=== PATIENT | female | born 1980 | race Caucasian/White ===

== ENCOUNTER 2023-12-10 22:22 | Emergency (ER) | payer OTHER, SELFPAY ==
--- NOTE | ~2023-12-10 | XR_ITS ---
XR chest 2V Ordering provider: Mitul Cuevas MD History: 43 years Female with . Chest pain and shortness of breath . Comparison: None. FINDINGS: MEDIASTINUM: The cardiac silhouette is not enlarged. LUNGS: No infiltrates, effusions or pneumothorax. OTHER: No free air under the diaphragm. IMPRESSION: No acute cardiopulmonary pathology. Reviewed, dictated and finalized at location A.
[2023-12-10 22:28] VITALS: BP 148/80; PULSE 81; RESP 16; TEMP 36.4; O2SAT 100
--- NOTE | 2023-12-10 22:28 | ECG_ITS ---
Test Date: 2023-12-10 22:34:40 Measurements Intervals [place] Rate: 70 P: 52 [place]: 171 QRS: 9 QRSD: 101 T: 33 QT: 363 QTc: 392 Interpretive Statements SINUS RHYTHM POOR R-WAVE PROGRESSION BORDERLINE ECG No previous ECG available for comparison Electronically Signed On 12-11-2023 14:55:03 CDT by Fredy Fernandez M.D.
[2023-12-10 22:48] LABS: Basophils Percent Auto 0.2 % (0.2-1.2); Eosinophils Absolute Auto 0.1 K/mm3 (0-0.3); Eosinophils Percent Auto 0.7 % (0-4.4); Hematocrit 38.5 % (37.0-47.0); Hemoglobin 12.6 g/dL (12.0-15.0); Immature Granulocyte Absolute 0.04 K/mm3 (0.00-0.031); Immature Granulocyte Percent A 0.3 % (0-0.5); Lymphocytes Absolute Auto 3.24 K/mm3 (0.9-3.2); Lymphocytes Percent Auto 27.3 % (18.3-44.2); Mean Corpuscular HGB Conc 32.7 g/dl (32-36); Mean Corpuscular Hemoglobin 28.7 pg (26-34); Mean Corpuscular Volume 87.7 fl (80-100); Mean Platelet Volume 10.1 fl (7.4-10.4); Monocytes Absolute Auto 0.9 K/mm3 (0.1-0.6); Monocytes Percent Auto 7.4 % (2.6-8.5); Neutrophils Absolute Auto 7.6 K/mm3 (1.3-6.7); Neutrophils Percent Auto 64.1 % (45.5-73.1); Platelet Count Result 255 k/mm3 (150-375); Red Blood Count 4.39 M/mm3 (4.2-5.4); Red Cell Distribution Width 13.9 % (11.5-14.5); White Blood Count 11.9 K/mm3 (4.5-10.0)
[2023-12-10 22:58] LABS: Alanine Aminotransferase 30 U/L (6-35); Albumin Level 4.4 g/dL (3.5-5.1); Alkaline Phosphatase 80 U/L (38-126); Anion Gap 13 mmol/L (4-12); Aspartate Amino Transferase 24 U/L (14-36); Bilirubin,Total 1.2 mg/dL (0.2-1.3); Blood Urea Nitrogen 13 mg/dL (7-17); Calcium 9.1 mg/dL (8.4-10.2); Carbon Dioxide 21 mmol/L (22-30); Chloride 102 mmol/L (98-107); Estimated CRCL calculation 123 ml/min; Estimated Glomerular Filt Rate > 60; Glucose 174 mg/dL (65-110); Potassium 3.9 mmol/L (3.4-5.0); Sodium 136 mmol/L (137-145)
[2023-12-10 23:10] LABS: Troponin I < 0.012 ng/mL (0.000-0.034)
[2023-12-10 23:35] VITALS: PULSE 90; O2SAT 98
--- NOTE | 2023-12-10 23:46 | ED.SOB ---
HPI - SOB/Dyspnea General Chief Complaint: Shortness of Breath/Dyspnea Stated Complaint: shortness of breath Time Seen by Provider: 12/10/23 22:34 Source: patient Mode of arrival: ambulatory Limitations: no limitations History of Present Illness HPI Narrative: This is a 43-year-old female, who denies significant past medical history, presented to the emergency department complaining of intermittent shortness of breath and chest pain for the 2 months. The patient states 1 week ago, she was walking in a hilly area with [place], when she noticed she was more short of breath than usual and had substernal pressure-like pain radiating to the left arm. This worsens with physical activity though does also occur with rest. She suspects a component of anxiety. She also complains of a bloating sensation since recovering from an episode of viral enterocolitis caught from her child. She has no other complaints at this time. Related Data Allergies Allergy/AdvReac Type Severity Reaction Status Date / Time Sulfa (Sulfonamide AdvReac Hives Verified 12/10/23 22:27 Antibiotics) Review of Systems Review of Systems: All systems reviewed & are unremarkable except as noted in HPI and below PMFSH Past Medical History Medical History Mitral regurgitation Surgical History Surgical History No significant past surgical history Social History Social History Smoking status: Never smoker Alcohol intake: never Substance use: never Exam Narrative: GENERAL: Well-developed, well-nourished, and in no acute distress. HEAD: Normocephalic, atraumatic. EYES: PERRLA and EOMI. CHEST: Clear to auscultation. No respiratory distress. No wheezes rales or rhonchi HEART: Regular rate and rhythm. No murmur heard. Normal peripheral pulses. ABDOMEN: Soft, nontender, nondistended, normal active bowel sounds. EXTREMITIES: Normal range of motion. No edema. SKIN: Warm, dry, no rash. NEURO: Alert and oriented x3. No focal deficit. Moving all 4 limbs spontaneously PSYCH: Normal mood and affect. Course Course Emergency Course: 23:48 - CBC demonstrates elevated white blood cell count of 11.9 but is otherwise unremarkable. Chemistries demonstrate mild hyponatremia sodium 136 and hyperglycemia with glucose of 174 but is otherwise unremarkable. Troponin negative. EKG not concerning for ischemia. The patient provided labs obtained by her primary care doctor today demonstrating bacteriuria with white blood cells and leukocyte esterase. Chest x-ray pending. Heart score 3. I discussed treatment options, including admission for observation versus outpatient follow-up. The patient prefers to follow up with her primary care doctor pending chest x-ray results. 00:22 - Chest x-ray not concerning for acute cardiopulmonary process. Will discharge with recommendation for primary care follow-up. I discussed the findings and recommendations with the patient. Discussed return and emergency precautions including signs/symptoms of ACS and respiratory distress. The patient voiced understanding and agreement with the plan. All questions answered to her satisfaction. Vital Signs Vital signs: Vital Signs Temperature 97.5 F L 12/10/23 22:28 Pulse Rate 81 12/10/23 22:28 Respiratory Rate 16 12/10/23 22:28 Blood Pressure 148/80 H 12/10/23 22:28 Pulse Oximetry 100 12/10/23 22:28 Temperature 97.5 F L 12/10/23 22:28 Pulse Rate 90 12/10/23 23:35 Respiratory Rate 16 12/10/23 22:28 Blood Pressure 148/80 H 12/10/23 22:28 Pulse Oximetry 98 12/10/23 23:35 Oxygen Delivery Room Air 12/10/23 23:35 MDM - SOB/Dyspnea MDM Narrative Medical decision making narrative: Plan: Labs, imaging, EKG, troponin, reassess Differential Diagnosis Differential diagnosis: Likely congestive heart fa
== END 2023-12-11 00:42 | disposition home or self-care (01) ==
PROVIDERS: Emergency Provider Preventive Medicine Aerospace Medicine
DX: R06.00 Dyspnea, unspecified (principal); R07.9 Chest pain, unspecified; I34.0 Nonrheumatic mitral (valve) insufficiency; R94.31 Abnormal electrocardiogram [ECG] [EKG]
CPT/HCPCS: 36415; 71046; 80053; 84484; 85025; 93005; 99284